=== PATIENT | female | born 1995 | race Two or more races ===

== ENCOUNTER 2017-09-15 10:01 | Inpatient (IN) | payer MEDICAID ==
[2017-09-15] MEDS ORDERED: Lidocaine 1% 50 ML MDV INJECT PRN (10:20)
[2017-09-15] MEDS ORDERED: Tranexamic Acid 1,000 MG in Sodium Chloride 0.9% 100 ML IV PRN (10:20)
[2017-09-15] MEDS ORDERED: Butorphanol 1 MG/ML SDV IVPUSH PRN (10:20)
[2017-09-15] MEDS ORDERED: Sodium Chloride 0.9% 2.5 ML Syringe FLUSH PRN (10:20)
[2017-09-15] MEDS ORDERED: Sodium Chloride 0.9% 10 ML Syringe FLUSH PRN (10:20)
[2017-09-15] MEDS ORDERED: Misoprostol 200 MCG Tab PO PRN (10:20)
[2017-09-15] MEDS ORDERED: Carboprost Tromethamine 250 MCG/1 ML Amp IM PRN (10:20)
[2017-09-15] MEDS ORDERED: Methylergonovine 0.2 MG/1 ML Amp IM PRN ×2 (10:20→11:53)
[2017-09-15] MEDS ORDERED: Water For Irrigation,Sterile 1,000 ML Container IRR PRN (10:20)
[2017-09-15] MEDS ORDERED: Nalbuphine 10 MG/1 ML Vial IVPUSH PRN (10:20)
[2017-09-15] MEDS ORDERED: Lactated Ringers 1,000 ML IV SCH (10:30)
[2017-09-15] MEDS ORDERED: Oxytocin/0.9 % Sodium Chloride 30 UNIT/500 ML BAG IV SCH (10:30)
[2017-09-15] MEDS ORDERED: fentaNYL 100 MCG/2 ML SDV ONE (10:41)
--- NOTE | 2017-09-15 11:11 | PCM.SN ---
- Free Text/Narrative Note: 1035-To OB for requested labor epidural. Patient is screaming with contractions , lab at bedside attempting to draw labs and patient is [place] speaking only. 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 Consent obtained and awaiting lab results when patient requests Dr. Maldonado and says that the baby is coming per family and RN. Platelet count 309 and when I entered the room the baby had just been delivered.
--- NOTE | 2017-09-15 11:50 | PCM.DEL ---
L & D Note - General Info Date of Service: 09/15/17 Mother's Due Date: 10/03/17 - Delivery Note Labor: Spontaneous Delivery Outcome: Livebirth Infant Delivery Method: Spontaneous Vaginal Delivery-Single Presentation: Left Occiput Anterior (LAKIA) Nuchal Cord: None Prep: Other Anesthesia Type: None, Local Anesthetic: Lidocaine (Xylocaine) 0.5% Plain Local Anesthetic Volume: Other (10 ml) Episiotomy Type: None Laceration: 2nd Degree Suture type: Vicryl Suture size: 3-0 Placenta: Intact, Spontaneous Cord: 3 Vessels Resuscitation Needed: No Wilsey: Suctioned, [place] Used Score 1 min: 8 Score 5 min: 9 (3160 gm) Second Stage Interventions: Reports: Other (see below) (presented 7 cm, rapid delivery) - General Info Date of Service: 09/15/17 - Patient Data Lab Results Last 24 Hours: Laboratory Results - last 24 hr 09/15/17 Range/Units 10:40 WBC 14.22 H (4.0-11.0) K/uL RBC 4.57 (4.30-5.90) M/uL Hgb 13.7 (12.0-16.0) g/dL Hct 40.3 (36.0-46.0) % MCV 88.2 (80.0-98.0) fL MCH 30.0 (27.0-32.0) pg MCHC 34.0 (31.0-37.0) g/dL RDW Std Deviation 42.6 (28.0-62.0) fl RDW Coeff of Charla 13 (11.0-15.0) % Plt Count 309 (150-400) K/uL MPV 9.40 (7.40-12.00) fL Nucleated RBC % 0.0 /100WBC Nucleated RBCs # 0 K/uL Med Orders - Current: Current Medications Butorphanol Tartrate (Stadol) 1 mg IVPUSH ASDIRECTED PRN PRN Reason: Pain Carboprost Tromethamine (Hemabate Ds) 250 mcg IM ASDIRECTED PRN PRN Reason: Post Hemorrhage Tranexamic Acid 1,000 mg/ (Sodium Chloride) 110 mls @ 660 mls/hr IV ONETIME PRN PRN Reason: Bleeding Lactated Ringer's (Ringers, Lactated) 1,000 mls @ 150 mls/hr IV ASDIRECTED CAITLIN Last Admin: 09/15/17 10:45 Dose: 999 mls/hr Oxytocin/Sodium Chloride (Oxytocin 30 Unit/500 Ml-Ns) 30 unit in 500 mls @ 999 mls/hr IV TITRATE [place] Lidocaine HCl (Xylocaine 1%) 50 ml INJECT .ONCE PRN PRN Reason: Laceration repair Methylergonovine Maleate (Methergine) 0.2 mg IM ASDIRECTED PRN PRN Reason: Post Hemorrhage Misoprostol (Cytotec) 200 mcg PO .ONCE PRN PRN Reason: Post Hemorrhage Nalbuphine HCl (Nubain) 10 mg IVPUSH ASDIRECTED PRN PRN Reason: Pain (severe 7-10) Sodium Chloride (Saline Flush) 10 ml FLUSH ASDIRECTED PRN PRN Reason: Keep Vein Open Sodium Chloride (Saline Flush) 2.5 ml FLUSH ASDIRECTED PRN PRN Reason: Keep Vein Open Sterile Water (Sterile Water For Irrigation) 1,000 ml IRR ASDIRECTED PRN PRN Reason: delivery Discontinued Medications Fentanyl (Sublimaze) Confirm Administered Dose 100 mcg .ROUTE .[employer] ONE Stop: 09/15/17 10:42 - Problem List & Annotations (1) Normal delivery at term SNOMED Code(s): 18451264 Code(s): O80 - ENCOUNTER FOR FULL-TERM UNCOMPLICATED DELIVERY Status: Acute Current Visit: Yes - Problem List Review Problem List Initiated/Reviewed/Updated: Yes - My Orders Last 24 Hours: My Active Orders 09/15/17 10:19 Patient Status [ADT] Routine Non Stress Test [RC] PER UNIT ROUTINE Up ad Helen [RC] ASDIRECTED Vaginal Exam [RC] Click to Edit Vital Signs [RC] PER UNIT ROUTINE Resuscitation Status Routine 09/15/17 10:20 Patient Status [ADT] Routine Heart Tones [RC] CONTINUOUS Non Stress Test [RC] PER UNIT ROUTINE May Shower [RC] ASDIRECTED Notify Provider [RC] PRN Up ad Helen [RC] ASDIRECTED Vaginal Exam [RC] PRN Vital Signs [RC] PER UNIT ROUTINE Butorphanol [Stadol] 1 mg IVPUSH ASDIRECTED PRN Carboprost Tromethamine [Hemabate DS] 250 mcg IM ASDIRECTED PRN Lidocaine 1% [Xylocaine 1%] 50 ml INJECT .ONCE PRN Methylergonovine [Methergine] 0.2 mg IM ASDIRECTED PRN Misoprostol [Cytotec] 200 mcg PO .ONCE PRN Nalbuphine [Nubain] 10 mg IVPUSH ASDIRECTED PRN Sodium Chloride 0.9% [Saline Flush] 10 ml FLUSH ASDIRECTED PRN Sodium Chloride 0.9% [Saline Flush] 2.5 ml FLUSH ASDIRECTED PRN Tranexamic Acid [Cyklokapron] 1,000 mg Sodium Chloride 0.9% [Normal Saline] 100 ml IV ONETIME Water For Irrigation,Sterile [Sterile Water for Irrigation] 1,000 ml IRR ASDIRECTED PRN Scalp Electrode [WOMSER] Per Unit Routine Peripheral IV Insertion Adult [OM.PC] Routine 09/15/17 10:30 Lactated Ringers [Ringers, Lactated] 1,000 ml IV ASDIRECTED Oxytocin/0.9 % Sodium Chloride [Oxytocin 30 Unit/500 ML-NS] 30 unit in 500 ml IV TITRATE 09/15/17 10:47 TYPE AND SCREEN [BBK] Routine
[2017-09-15] MEDS ORDERED: Acetaminophen 500 MG Tab PO PRN (11:53)
[2017-09-15] MEDS ORDERED: Docusate Sodium 100 MG Cap PO PRN (11:53)
[2017-09-15] MEDS ORDERED: Lanolin 100% Cream 7 GM Tube TOP PRN (11:53)
[2017-09-15] MEDS ORDERED: Ibuprofen 400 MG Tab PO PRN (11:53)
[2017-09-15] MEDS ORDERED: Witch Hazel Medicated Pads 40/Jar TOP PRN (11:53)
[2017-09-15] MEDS ORDERED: Bisacodyl 10 MG Supp RECTAL PRN (11:53)
[2017-09-15] MEDS ORDERED: Benzocaine/Menthol 20%-0.5% Spray 78 GM Cannister TOP PRN (11:53)
--- NOTE | 2017-09-15 12:36 | OR ---
SURGEON: Abigail Maldonado M.D. DATE OF PROCEDURE: 09/15/2017 PREOPERATIVE DIAGNOSES: 38 and 4/7 week intrauterine , active spontaneous labor. POSTOPERATIVE DIAGNOSES: 38 and 4/7 week intrauterine , active spontaneous labor. PROCEDURE: Term spontaneous vaginal delivery with repair of second-degree laceration. ANESTHESIA: Local. ESTIMATED BLOOD LOSS: Less than 200 mL. FINDINGS: Live born female, score 8 and 9, weighing 3160 g. Placenta spontaneous, Schultze intact with 3 vessels. Second-degree perineal laceration repaired. COMPLICATIONS: None known. DISPOSITION: Mother and baby are in LDRP in good condition. BRIEF HISTORY: This is a 21-year-old female, G2, P1-0-0-1. She has had care with Dr. Orta. She is blood type O positive, rubella immune, group B strep negative. She has uncomplicated care except for a short interval between pregnancies. She presents to Labor and Delivery, 7 cm dilated, having had spontaneous rupture of membranes, clear fluid. She requests an epidural. She was in very rapid labor when she arrived. We did get blood drawn and down to the lab as well as an IV placed; however, at this point, delivery was eminent and although Anesthesia was present, was unable to provide her with regional analgesia and at this point, baby was . DESCRIPTION OF PROCEDURE: With the patient in dorsal lithotomy position, the patient pushed over one contraction to a 5+ station, at which time the head was delivered spontaneously and atraumatically over the perineum with support with subsequent delivery of the infant's shoulders and body without any difficulty. The infant was bulb suctioned by nose and mouth and the was handed to the mother in the presence of nursing delivery. The infant is a liveborn female, score 8 and 9. The cord was doubly clamped and cut after it had ceased to pulsate and cord blood was collected for cord ABGs as well as routine cord blood sampling. The was a liveborn female, score 8 and 9, weighing 3160 g. Pitocin was initiated after delivery of the infant to assist with delivery of the placenta, which was delivered spontaneously. Schultze intact with 3 vessels. Upon inspection of the pelvis and perineum, there were no periurethral, vaginal sidewall, cervical, or rectal lacerations. There was a second-degree perineal laceration. She did receive IV Stadol after delivery of the infant as well as 10 mL of 1% lidocaine injected locally. With this, she had good analgesia and a running lock suture of 3-0 Polysorb was utilized to reapproximate the vaginal mucosa, deep running suture of the same for the deep perineal tissue, and a running subcuticular suture for the skin. Final sponge, needle, and instrument counts were correct. There were no known complications. Mother and are in LDRP in good condition. ARAMIS LOGAN /[id number]
[2017-09-15] MEDS: Ibuprofen 800 MG Tab PO PRN (16:34)
[2017-09-15] MEDS: Acetaminophen 500 MG Tab PO PRN (20:15)
[2017-09-16] MEDS: Ibuprofen 800 MG Tab PO PRN ×2 (06:05→14:09)
[2017-09-16] MEDS: oxyCODONE 5 MG Tab PO PRN ×2 (07:18→16:44)
--- NOTE | 2017-09-16 09:11 | PCM.PNPP ---
- General Info Date of Service: 09/16/17 Admission Dx/Problem (Free Text): 21 yo P2 s/p PPD 1 Subjective Update: Denies any complains she is ambulating ,, , tolerating regular diet .Minimal lochia Functional Status: Reports: Pain Controlled, Tolerating Diet, Ambulating, Urinating - Review of Systems General: Reports: No Symptoms HEENT: Reports: No Symptoms Pulmonary: Reports: No Symptoms Cardiovascular: Reports: No Symptoms Gastrointestinal: Reports: No Symptoms Genitourinary: Reports: No Symptoms Musculoskeletal: Reports: No Symptoms Skin: Reports: No Symptoms Neurological: Reports: No Symptoms Psychiatric: Reports: No Symptoms - General Info Date of Service: 09/16/17 - Patient Data Vital Signs - Most Recent: Last Vital Signs Temp 36.5 C 09/16/17 06:33 Pulse 76 09/16/17 06:33 Resp 20 09/16/17 06:33 BP 111/70 09/16/17 06:33 Pulse Ox 97 09/16/17 06:33 Weight - Most Recent: 58.967 kg Lab Results - Last 24 Hours: Laboratory Results - last 24 hr 09/15/17 09/15/17 09/15/17 Range/Units 10:40 10:47 11:02 WBC 14.22 H (4.0-11.0) K/uL RBC 4.57 (4.30-5.90) M/uL Hgb 13.7 (12.0-16.0) g/dL Hct 40.3 (36.0-46.0) % MCV 88.2 (80.0-98.0) fL MCH 30.0 (27.0-32.0) pg MCHC 34.0 (31.0-37.0) g/dL RDW Std Deviation 42.6 (28.0-62.0) fl RDW Coeff of Charla 13 (11.0-15.0) % Plt Count 309 (150-400) K/uL MPV 9.40 (7.40-12.00) fL Nucleated RBC % 0.0 /100WBC Nucleated RBCs # 0 K/uL Cord ABG pH 7.419 H (7.18-7.38) Cord ABG Base Excess -3 (-10--2) Cord VBG pH 7.429 (7.25-7.45) Cord VBG Base Excess -3 (-10--2) Blood Type O POSITIVE Antibody Screen NEGATIVE Med Orders - Current: Current Medications Acetaminophen (Tylenol Extra Strength) 500 mg PO Q4H PRN PRN Reason: Pain Acetaminophen (Tylenol Extra Strength) 1,000 mg PO Q4H PRN PRN Reason: Pain Last Admin: 09/15/17 20:15 Dose: 1,000 mg Benzocaine/Menthol (Dermoplast Pain Relief 20%-0.5% [place]) 78 gm TOP ASDIRECTED PRN PRN Reason: Perineal Comfort Measure Last Admin: 09/15/17 13:09 Dose: 1 canister Bisacodyl (Dulcolax) 10 mg RECTAL .ONCE PRN PRN Reason: Constipation Docusate Sodium (Colace) 100 mg PO BID PRN PRN Reason: Constipation Emollient Ointment (Lansinoh Hpa) 0 gm TOP ASDIRECTED PRN PRN Reason: Sore Nipples Ibuprofen (Motrin) 400 mg PO Q4H PRN PRN Reason: Pain Ibuprofen (Motrin) 800 mg PO Q6H PRN PRN Reason: Pain Last Admin: 09/16/17 06:05 Dose: 800 mg Methylergonovine Maleate (Methergine) 0.2 mg IM .ONCE PRN PRN Reason: Excessive Vaginal Bleeding Oxycodone HCl (Oxycodone) 5 mg PO Q2H PRN PRN Reason: Pain Last Admin: 09/16/17 07:18 Dose: 5 mg [place] (Tucks) 1 pad TOP ASDIRECTED PRN PRN Reason: comfort care Last Admin: 09/15/17 13:08 Dose: 1 tub Discontinued Medications Butorphanol Tartrate (Stadol) 1 mg IVPUSH ASDIRECTED PRN PRN Reason: Pain Last Admin: 09/15/17 11:13 Dose: 1 mg Carboprost Tromethamine (Hemabate Ds) 250 mcg IM ASDIRECTED PRN PRN Reason: Post Hemorrhage Fentanyl (Sublimaze) Confirm Administered Dose 100 mcg .ROUTE .[facility] ONE Stop: 09/15/17 10:42 Tranexamic Acid 1,000 mg/ (Sodium Chloride) 110 mls @ 660 mls/hr IV ONETIME PRN PRN Reason: Bleeding Lactated Ringer's (Ringers, Lactated) 1,000 mls @ 150 mls/hr IV ASDIRECTED [facility] Last Admin: 09/15/17 10:45 Dose: 999 mls/hr Oxytocin/Sodium Chloride (Oxytocin 30 Unit/500 Ml-Ns) 30 unit in 500 mls @ 999 mls/hr IV TITRATE [facility] Last Admin: 09/15/17 11:05 Dose: 999 mls/hr Lidocaine HCl (Xylocaine 1%) 50 ml INJECT .ONCE PRN PRN Reason: Laceration repair Last Admin: 09/15/17 11:14 Dose: 50 ml Methylergonovine Maleate (Methergine) 0.2 mg IM ASDIRECTED PRN PRN Reason: Post Hemorrhage Misoprostol (Cytotec) 200 mcg PO .ONCE PRN PRN Reason: Post Hemorrhage Nalbuphine HCl (Nubain) 10 mg IVPUSH ASDIRECTED PRN PRN Reason: Pain (severe 7-10) Sodium Chloride (Saline Flush) 10 ml FLUSH ASDIRECTED PRN PRN Reason: Keep Vein Open Sodium Chloride (Saline Flush) 2.5 ml FLUSH ASDIRECTED PRN PRN Reason: Keep Vein Open Sterile Water (Sterile Water For Irrigation) 1,000 ml IRR ASDIRECTED PRN PRN Reason: delivery Last Admin: 09/15/17 11:00 Dose: 1,000 ml - Interaction Infant Disposition, : [place] at Bedside Interaction: Holding Infant Feeding: Breastfed Infant; Nursed Well Support Person: - Recovery Exam Fundal Tone: Firm Fundal Level: 1 Fingerbreadths Below Umbilicus Fundal Placement: Midline Lochia Amount: Scant Lochia Color: Rubra/Red Perineum Description: Intact, Minimal Bruising/Swelling Episiotomy/Laceration: Approximated Bladder Status: Voiding Urinary Elimination: Voided - Exam General: Alert HEENT: Pupils Equal Neck: Supple Lungs: Clear to Auscultation Cardiovascular: Regular Rate, Regular Rhythm GI/Abdominal Exam: Normal Bowel Sounds Extremities: Normal Inspection Skin: Warm Neurological: No New Focal Deficit Psy/Mental Status: Alert - Problem List & Annotations (1) Normal delivery at term SNOMED Code(s): 20785294 Code(s): O80 - ENCOUNTER FOR FULL-TERM UNCOMPLICATED DELIVERY Status: Acute Current Visit: Yes - Problem List Review Problem List Initiated/Reviewed/Updated: Yes - Assessment Assessment:: 21 yo P2 s/p PPD1 - Plan Plan:: Discharge home Routine care
[2017-09-16] MEDS: Acetaminophen 500 MG Tab PO PRN (16:45)
== END 2017-09-16 20:10 | disposition home or self-care (01) | DRG 775 ==
LOC: MW.OBCHECK 10:01 → MW.OB 10:19 → MW.OBCHECK 11:00 → OBSVTOIN 11:02 → MW.OB 14:39
PROVIDERS: ADMIT Obstetrics & Gynecology; ATTEND Obstetrics & Gynecology
PROC: 10E0XZZ Delivery of Products of Conception, External Approach (ICD-10-PCS; principal; 2017-09-15)
PROC: 0KQM0ZZ Repair Perineum Muscle, Open Approach (ICD-10-PCS; 2017-09-15)
DX: O70.1 Second degree perineal laceration during delivery (principal); Z37.0 Single live birth; Z3A.38 38 weeks gestation of pregnancy
CPT/HCPCS: 36415; 59025; 59409; 82803; 85027; 86850; 86900; 86901; A9270-GY; J0595; J2590; J7120